=== PATIENT | female | born 1990 | race Caucasian/White ===

== ENCOUNTER 2016-07-31 18:50 | Emergency (ER) | payer OTHER ==
[~2016-07-31] VITALS: Ht 165.1 cm; Wt 63.5 kg
--- NOTE | ~2016-07-31 | EKG ---
[address] [place] [address] ELECTROCARDIOGRAM REPORT Name: KARLA RIOS [id number] Admission: 07/31/16 Attend Phys: Discharge: 07/31/16 Date of : [birth year] Report #: [id number] THIS REPORT FOR: //name// [facility] ED Test Date: 2016-07-31 Test Time: 18:54:07 Pat Name: KARLA RIOS Department: Room: Gender: F Rehabilitation Therapy Aide: [facility] : 1990 Requested By: To Goff Order Number: [id number] MD: Jay Larios Measurements Intervals [place] Rate: 94 P: 76 [place]: 159 QRS: 71 QRSD: 85 T: 9 QT: 340 QTc: 426 Interpretive Statements Sinus rhythm No significant abnormality No previous ECG available for comparison Electronically Signed On 08-02-2016 8:38:49 VISUAL DEVELOPER by Jay Larios [email or web address] <ELECTRONICALLY SIGNED> By: Jay Larios MD, [facility] 08/02/16 0838 1854 1854 Jay Larios MD, FACC /EPI
[~2016-07-31 18:50] MED LIST: LEXAPRO 10 MG T10 M1 PO; XANAX 0.25 MG0.25 MG; ZOFRAN ODT4 MG PO
[2016-07-31 20:05] LABS: AMP/METHAMP Negative (Negative); BARBITURATES Negative (Negative); BENZODIAZEPINES Negative (Negative); COCAINE Negative (Negative); METHADONE Negative (Negative); OPIATES Negative (Negative); PCP Negative (Negative); THC Negative (Negative)
[2016-07-31] MEDS ORDERED: ATIVAN1 MG PO (20:35)
[2016-07-31 21:03] VITALS: BP 113/70
== END 2016-07-31 21:16 | disposition home or self-care (01) ==
LOC: ER 18:50
PROVIDERS: Emergency Medicine
DX: R07.89 Other chest pain (principal); F10.129 Alcohol abuse with intoxication, unspecified; F41.0 Panic disorder [episodic paroxysmal anxiety]; F41.9 Anxiety disorder, unspecified

== ENCOUNTER 2018-07-25 03:06 | Emergency (ER) | payer OTHER ==
[~2018-07-25] VITALS: Ht 172.7 cm; Wt 68.0 kg
[~2018-07-25 03:06] MED LIST changes: +ATIVAN1 MG PO
[2018-07-25 05:13] VITALS: BP 129/68
--- NOTE | 2018-07-25 08:47 | EKG ---
[address] [address] ELECTROCARDIOGRAM REPORT Name: KARLA RIOS [facility] [id number] Admission: 07/25/18 Attend Phys: Discharge: 07/25/18 Date of : [birth year] Report #: [id number] THIS REPORT FOR: //name// [facility] ED Test Date: 2018-07-25 Test Time: 03:45:19 Pat Name: KARLA RIOS Department: Room: Gender: F Manager Critical Care Unit: Leonel [facility] : 1990 Requested By: Renee Anthony Order Number: [id number] MD: Florin Gu Measurements Intervals [place] Rate: 66 P: 58 [place]: 158 QRS: 78 QRSD: 87 T: 19 QT: 360 QTc: 378 Interpretive Statements Sinus rhythm Compared to ECG 07/31/2016 18:54:07 No significant changes Electronically Signed On 07-25-2018 8:47:23 NURSE'S ASSISTANT by Florin Gu [email or web address] <ELECTRONICALLY SIGNED> By: Florin Gu MD 07/25/18 0847 0345 0345 Florin Gu MD /DAVY
== END 2018-07-25 05:14 | disposition home or self-care (01) ==
LOC: ER 03:06
DX: F41.0 Panic disorder [episodic paroxysmal anxiety] (principal)

== ENCOUNTER 2019-01-19 21:02 | Emergency (ER) | payer OTHER ==
[~2019-01-19] VITALS: Ht 165.1 cm; Wt 62.1 kg
[2019-01-19 21:54] LABS: ABSOLUTE NEUTROPHILS 3.6 thou/uL (1.4-8.2); BASOPHILS 0.5 % (0.0-2.0); EOSINOPHILS 2.4 % (0.0-3.0); HEMATOCRIT 42.6 % (37.0-47.0); HEMOGLOBIN 14.5 gm/dL (12.0-15.0); LYMPHOCYTES 41.5 % (24.0-44.0); MCV 91.2 fL (80.0-100.0); PLATELET COUNT 298 thou/uL (150-400); POLYS 47.6 % (36.0-66.0); RBC 4.67 mil/uL (4.20-5.00); RDW 13.1 % (10.5-14.5); WBC 7.6 thou/uL (4.0-11.0)
[2019-01-19 22:12] LABS: CALCIUM 8.8 mg/dL (8.5-10.1); CREATININE 0.8 mg/dL (0.6-1.0); POTASSIUM 3.3 mmol/L (3.5-5.1)
[2019-01-19 22:13] LABS: MAGNESIUM 1.9 mg/dL (1.8-2.4)
[2019-01-19 23:56] VITALS: BP 131/76
--- NOTE | 2019-01-21 09:12 | EKG ---
[address] [employer] [place] [address] ELECTROCARDIOGRAM REPORT Name: KARLA RIOS [facility] [id number] ������������������ Admission: 01/19/19 ������������������ Attend Phys: Discharge: 01/20/19 ������������������ Date of : 86 Report #: [id number] ����������������������������������������������������������������� [id number] THIS REPORT FOR: //name// [facility] ED Test Date: 2019-01-19 Test Time: 21:40:50 Pat Name: KARLA RIOS Department: Room: Gender: F Internal Communications Specialist: [place] : 1990 Requested By: Mariela Fu Order Number: [id number] MD: Jay Larios Measurements Intervals [place] Rate: 94 P: 78 [place]: 161 QRS: 72 QRSD: 88 T: 33 QT: 325 QTc: 407 Interpretive Statements Sinus rhythm Normal tracing Compared to ECG 07/25/2018 03:45:19 No significant changes Electronically Signed On 01-21-2019 9:12:02 CDT by Jay Larios [email or web address] ��������������������������������������������� <ELECTRONICALLY SIGNED> ���������������������������������������� By: Jay Larios MD, [facility] ��������������������������������������������� 01/21/19 0912 2140 Jay Larios MD, FACC /EPI
== END 2019-01-20 00:01 | disposition home or self-care (01) ==
LOC: ER 21:02
PROVIDERS: Emergency Medicine
DX: F41.9 Anxiety disorder, unspecified (principal); F10.129 Alcohol abuse with intoxication, unspecified; Y90.0 Blood alcohol level of less than 20 mg/100 ml

== ENCOUNTER 2019-04-02 06:49 | Emergency (ER) | payer OTHER ==
[~2019-04-02] VITALS: Ht 165.1 cm; Wt 61.2 kg
[2019-04-02] MEDS ORDERED: LEXAPRO5 MG PO (06:56)
[2019-04-02 07:37] LABS: BASOPHILS 0.1 % (0.0-2.0); EOSINOPHILS 0.1 % (0.0-3.0); HEMOGLOBIN 14.3 gm/dL (12.0-15.0); LYMPHOCYTES 11.1 % (24.0-44.0); MCH 30.5 pg (26.0-34.0); MCHC 33.9 g/dL (28.0-37.0); MONOCYTES 3.7 % (1.0-8.0); PLATELET COUNT 289 thou/uL (150-400); RBC 4.67 mil/uL (4.20-5.00); RDW 12.8 % (10.5-14.5); WBC 12.9 thou/uL (4.0-11.0)
[2019-04-02 07:39] LABS: CALCIUM 9.6 mg/dL (8.5-10.1); CREATININE 0.9 mg/dL (0.6-1.0); POTASSIUM 3.7 mmol/L (3.5-5.1)
[2019-04-02 07:45] LABS: ALBUMIN 4.6 g/dL (3.4-5.0); TOTAL BILIRUBIN 0.5 mg/dL (<0.1-1.0); TOTAL PROTEIN 8.7 g/dL (6.4-8.2)
[2019-04-02] MEDS ORDERED: ONDANSETRON HCL4 M2 PO (08:45)
[2019-04-02 08:47] VITALS: BP 143/74
== END 2019-04-02 08:51 | disposition home or self-care (01) ==
LOC: ER 06:49
PROVIDERS: Emergency Medicine
DX: R11.2 Nausea with vomiting, unspecified (principal); R19.7 Diarrhea, unspecified; F41.0 Panic disorder [episodic paroxysmal anxiety]

== ENCOUNTER 2020-09-07 08:21 | Emergency (ER) | payer OTHER ==
[~2020-09-07] VITALS: Ht 165.1 cm; Wt 63.5 kg
[~2020-09-07 08:21] MED LIST changes: +LEXAPRO5 MG PO; +ONDANSETRON HCL4 M2 PO
[2020-09-07 09:41] LABS: ABSOLUTE NEUTROPHILS 9.7 thou/uL (1.4-8.2); BASOPHILS 0.1 % (0.0-2.0); EOSINOPHILS 0.6 % (0.0-3.0); HEMATOCRIT 41.9 % (37.0-47.0); HEMOGLOBIN 14.2 gm/dL (12.0-15.0); LYMPHOCYTES 15.5 % (24.0-44.0); MCHC 33.9 g/dL (28.0-37.0); MCV 91.3 fL (80.0-100.0); MONOCYTES 6.8 % (1.0-8.0); PLATELET COUNT 285 thou/uL (150-400); RBC 4.59 mil/uL (4.20-5.00); RDW 12.7 % (10.5-14.5); WBC 12.6 thou/uL (4.0-11.0)
[2020-09-07 09:44] LABS: ANION GAP 14 mmol/L (7-16); BUN 14 mg/dL (7-18); CHLORIDE 103 mmol/L (98-107); CO2 24 mmol/L (21-32); CREATININE 0.9 mg/dL (0.6-1.0); GLUCOSE 90 mg/dL (74-106); POTASSIUM 3.8 mmol/L (3.5-5.1); SODIUM 141 mmol/L (136-145)
[2020-09-07 09:50] LABS: ALBUMIN 4.5 g/dL (3.4-5.0); DIRECT BILIRUBIN < 0.1 mg/dL (<0.1-0.2); SGOT 25 U/L (15-37); SGPT 23 U/L (14-59); TOTAL BILIRUBIN 0.3 mg/dL (0.2-1.0); TOTAL PROTEIN 8.2 g/dL (6.4-8.2)
[2020-09-07 10:09] LABS: URINE BILIRUBIN NEGATIVE (Negative); URINE BLOOD 3+ (Negative); URINE CLARITY CLEAR; URINE COLOR YELLOW; URINE GLUCOSE-RANDOM* NEGATIVE (Negative); URINE KETONES 1+ (Negative); URINE LEUKOCYTES-REFLEX NEGATIVE (Negative); URINE NITRITE-REFLEX NEGATIVE (Negative); URINE PROTEIN (DIPSTICK) TRACE (Negative); URINE SPECIFIC GRAVITY >= 1.030 (1.005-1.035); URINE UROBILINOGEN 0.2 E.U./dl (0.2-1.0)
[2020-09-07 10:22] LABS: BACTERIA-REFLEX 1-9 Few /HPF (None Seen); CASTS None Seen /LPF (None Seen); CRYSTALS None Seen /LPF (None Seen); SQUAMOUS 4-10 Moderate /LPF (0-3); URINE RBC None Seen /HPF (0-2); URINE WBC-REFLEX 0-5 Rare /HPF (0-5)
[2020-09-07] MEDS ORDERED: ZOFRAN ODT4 MG PO (11:16)
[2020-09-07 11:24] VITALS: BP 101/56
== END 2020-09-07 11:24 | disposition home or self-care (01) ==
LOC: ER 08:21
PROVIDERS: Emergency Medicine
DX: R55 Syncope and collapse (principal); R10.32 Left lower quadrant pain; Z79.899 Other long term (current) drug therapy; W18.39XA Other fall on same level, initial encounter; Y93.89 Activity, other specified; Y92.89 Other specified places as the place of occurrence of the external cause; Y99.8 Other external cause status